=== PATIENT | female | born 1965 | race Two or more races ===

== ENCOUNTER 2017-02-02 16:27 | Emergency (ER) | payer BC, MEDICAID ==
[~2017-02-02] VITALS: Ht 154.9 cm; Wt 76.9 kg
[2017-02-02 17:26] LABS: Basophils # (auto) 0.1 uL; Basophils % (auto) 0.9 % (0.0-2.0); Eosinophils # (auto) 0.2 uL; Eosinophils % (auto) 2.3 % (0.0-7.0); Hematocrit 40.1 % (36.0-46.0); Hemoglobin 13.5 g/dL (12.2-16.2); Lymphocytes # (auto) 1.7 uL; Lymphocytes % (auto) 19.9 % (10.0-50.0); Mean Corpuscular Hemoglobin 30.2 pg (28.0-32.0); Mean Corpuscular Hgb Conc. 33.8 g/dL (32.0-36.0); Mean Corpuscular Volume 89.5 fL (80.0-100.0); Mean Platelet Volume 7.7 fL (6.9-10.8); Monocytes # (auto) 0.5 uL; Monocytes % (auto) 5.7 % (0.0-12.0); Neutrophils # (auto) 6.3 uL; Neutrophils % (auto) 71.2 % (37.0-80.0); Nucleated Red Blood Cells % 0.1 %; Platelet Count (auto) 235 10^3/uL (140-450); White Blood Cell 8.8 10^3/uL (4.4-10.8)
[2017-02-02 18:00] LABS: Albumin 4.1 g/dL (3.4-5.0); Alkaline Phosphatase 123 U/L (45-117); Anion Gap 8 (5-15); Aspartate Aminotransferase 14 U/L (15-37); BUN/Creatinine Ratio 31.1; Bilirubin, Total 0.5 mg/dL (0.2-1.0); Blood Urea Nitrogen 19 mg/dL (7-18); Calcium 8.8 mg/dL (8.5-10.1); Carbon Dioxide 24 mmol/L (21-32); Chloride 105 mmol/L (98-107); GFR African American 132 mL/min; GFR Non-African American 109 mL/min; Glucose 100 mg/dL (74-106); Magnesium 2.7 mg/dL (1.6-2.6); Potassium 3.9 mmol/L (3.5-5.1); Sodium 137 mmol/L (136-145); Total Protein 8.2 g/dL (6.4-8.2)
[2017-02-03 07:25] VITALS: BP 116/68
[2017-02-03] MEDS ORDERED: KETOROLAC TROMETH 60MG/2ML VIAL IM ONE (08:00)
== END 2017-02-03 08:22 | disposition home or self-care (01) ==
LOC: ER 16:31
DX: M75.51 Bursitis of right shoulder (principal); I10 Essential (primary) hypertension
CPT/HCPCS: 36415; 73030; 80053; 83735; 84484; 85025; 93005; 96372; 99285; J1885